=== PATIENT | male | born 1980 | race Hispanic/Latino ===

== ENCOUNTER 2023-10-11 19:42 | Emergency (ER) | payer OTHER ==
[~2023-10-11] VITALS: Ht 165.1 cm; Wt 90.0 kg
[~2023-10-11 19:42] MED LIST: AMOXICILLIN875 MG OR
[2023-10-11] MEDS ORDERED: BP MED (19:57)
[2023-10-11 20:00] VITALS: BP 137/83
[2023-10-11] MEDS ORDERED: SODIUM CHLORIDE 0.9% 1,000 ML IV ONE (20:10)
[2023-10-11 20:15] VITALS: BP 139/86
[2023-10-11 20:16] LABS: BASO% 0.3 % (0-3); EOS% 1.4 % (0-8); HEMATOCRIT 40.3 % (39.0-50.0); HEMOGLOBIN 14.7 g/dl (14.0-18.0); IMMATURE GRANULOCYTES 0.6 % (0.0-5.0); LYMPH% 39.7 % (15-41); MEAN CELL VOLUME 82.6 fL CALC (80.0-100.0); MEAN CORPUSCULAR HGB 30.1 pG CALC (26.0-32.0); MEAN CORPUSCULAR HGB CONC 36.5 g/dL CAL (32.0-36.0); MONO% 5.5 % (2-13); NEUT# 3.34 thou/uL (1.82-7.42); NEUT% 52.5 % (42-76); RED BLOOD COUNT 4.88 mill/uL (4.70-6.10); RED CELL DISTRI WIDTH 14.4 % (11.5-15.5)
[2023-10-11 20:28] LABS: ALBUMIN 4.2 g/dL (3.2-5.0); BILIRUBIN, TOTAL 0.5 mg/dL (0.2-1.3); CREATININE 1.3 mg/dL (0.7-1.3); POTASSIUM 4.2 mmol/l (3.5-5.1); TOTAL PROTEIN 7.8 g/dL (6.3-8.2)
[2023-10-11 20:30] VITALS: BP 122/83
[2023-10-11 20:45] VITALS: BP 126/87
[2023-10-12] MEDS ORDERED: TORADOL PO (00:34)
[2023-10-12] MEDS ORDERED: ORPHENADRINE100 MG PO (00:34)
[2023-10-12] MEDS ORDERED: MORPHINE SULFATE 4 MG/ML VIAL IV ONE (00:35)
[2023-10-12] MEDS ORDERED: KETOROLAC TROMETHAMINE 30 MG/ML SDV IV ONE (00:35)
[2023-10-12 00:52] VITALS: BP 126/87
== END 2023-10-12 00:56 | disposition home or self-care (01) | DRG 552 ==
LOC: ED 19:42
PROVIDERS: Nurse Practitioner
DX: S13.9XXA Sprain of joints and ligaments of unspecified parts of neck, initial encounter (principal); M62.838 Other muscle spasm; V49.50XA Passenger injured in collision with unspecified motor vehicles in traffic accident, initial encounter
CPT/HCPCS: Q9967